=== PATIENT | male | born 1980 | race Caucasian/White ===

== ENCOUNTER 2018-04-19 08:43 | Inpatient (IN) | payer OTHER ==
[2018-04-19 09:08] VITALS: BMI 27.3
--- NOTE | 2018-04-19 10:11 | HP ---
CIWA Score - Admission Criteria [facility] Guidelines: Admission for Medically Managed Detox: Requires at least one of the followin. CIWA greater than 12 2. Seizures within the past 24 hours 3. Delirium tremens within the past 24 hours 4. Hallucinations within the past 24 hours 5. Acute intervention needed for co occurring medical disorder 6. Acute intervention needed for co occurring psychiatric disorder 7. Severe withdrawal that cannot be handled at a lower level of care (continued vomiting, continued diarrhea, abnormal vital signs) requiring intravenous medication and/or fluids 8. Admission ROS [facility] - HPI Chief Complaint: i need help to go to rehab for heroin abused,mandate by parole,also alcohol abused Allergies/Adverse Reactions: Allergies Allergy/AdvReac Type Severity Reaction Status Date / Time Penicillins Allergy Severe Hives Verified 04/19/18 09:48 History of Present Illness: this 37 years old male with heroin abused,mandated by parole,also alcohol abused anxiety,depression,adhd no medication nicotine dependence last treatment [facility] 09[facility]04 not completed Exam Limitations: No Limitations - Ebola screening Have you traveled outside of the country in the last 21 days: No Have you had contact with anyone from an Ebola affected area: No Have you been sick,other than usual withdrawal symptoms: No Do you have a fever: No - Review of Systems Constitutional: No Symptoms Reported EENT: reports: No Symptoms Reported Respiratory: reports: No Symptoms reported Cardiac: reports: No Symptoms Reported GI: reports: No Symptoms Reported : reports: No Symptoms Reported Musculoskeletal: reports: No Symptoms Reported Integumentary: reports: Dryness Neuro: reports: No Symptoms reported Endocrine: reports: No Symptoms Reported Hematology: reports: No Symptoms Reported Psychiatric: reports: No Sypmtoms Reported, Judgement Intact, Mood/Affect Appropiate, Orientated x3, Anxious, Depressed, other (adhd) Patient History - Patient Medical History Hx Anemia: No Hx Asthma: No Hx Chronic Obstructive Pulmonary Disease (COPD): No Hx Cancer: No Hx Cardiac Disorders: No Hx Congestive Heart Failure: No Hx Hypertension: No Hx Hypercholesterolemia: No Hx Pacemaker: No HX Cerebrovascular Accident: No Hx Seizures: Yes (r/t head trauma-last episode was in 08/2017) Hx Dementia: No Hx Diabetes: No Hx Gastrointestinal Disorders: No Hx Liver Disease: No Hx Genitourinary Disorders: No Hx Sexually Transmitted Disorders: No Hx Renal Disease (ESRD): No Hx Thyroid Disease: No Hx Human Immunodeficiency Virus (HIV): No (last 02/04 negative) Hx Hepatitis C: No Hx Depression: Yes (anxiety,adhd) Hx Suicide Attempt: No Hx Bipolar Disorder: No Hx Schizophrenia: No Other Medical History: no suicidal,no homicidal - Patient Surgical History Past Surgical History: Yes Hx Neurologic Surgery: No Hx Cataract Extraction: No Hx Cardiac Surgery: No Hx Lung Surgery: No Hx Breast Surgery: No Hx Breast Biopsy: No Hx Abdominal Surgery: No Hx Appendectomy: No Hx Cholecystectomy: No Hx Genitourinary Surgery: No Hx Section: No Hx Orthopedic Surgery: Yes (fx, left arm (fall)) Other Surgical History: right shoulder, left ear - PPD History Previous Implant?: Yes Documented Results: Negative w/o proof Implanted On Prior [facility] Admission?: No PPD to be Administered?: Yes - Smoking Cessation Smoking history: Current every day smoker Have you smoked in the past 12 months: Yes Aproximately how many cigarettes per day: 10 Cigars Per Day: 0 Hx Chewing Tobacco Use: No Initiated information on smoking cessation: Yes 'Breaking Loose' booklet given: 04/19/18 - Substance & Tx. History Hx Alcohol Use: Yes Hx Substance Use: Yes Substance Use Type: Heroin Hx Substance Use Treatment: Yes (rehab [facility] 09[facility]04 not completed) - Substances Abused Heroin Route: Inhalation Frequency: 1-2 times per week Amount used: 2-3 bags Age of first use: 18 Date of Last Use: 04/12/18 Alcohol Route: Oral Frequency: 3-6 times per week Amount used: 1pint of vodka/2 of 24 ozs of beer Age of first use: 14 Date of Last Use: 04/16/18 Family Disease History - Family Disease History Family Disease History: CA: Mother (), Other: Father (alcohol) Admission Physical Exam [facility] - Vital Signs Vital Signs: Vital Signs - 24 hr 04/19/18 09:05 Temperature 98.8 F Pulse Rate 60 Respiratory 18 Rate Blood Pressure 105/60 - Physical General Appearance: Yes: Within Normal Limits HEENTM: Yes: Normal ENT Inspection, BEA, Pharynx Normal, Tm's normal Respiratory: Yes: Lungs Clear, Normal Breath Sounds, No Respiratory Distress Neck: Yes: Within Normal Limits, Supple, Trachea in good position Breast: Yes: Within Normal Limits Cardiology: Yes: Within Normal Limits, Regular Rhythm, Regular Rate, S1, S2 Abdominal: Yes: Within Normal Limits, Normal Bowel Sounds, Non Tender, Flat, Soft Genitourinary: Yes: Within Normal Limits Back: Yes: Within Normal Limits (history of low back pain) Musculoskeletal: Yes: Within Normal Limits Extremities: Yes: Within Normal Limits 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: 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 NML intact, Fully Oriented, Alert, Motor Strength 5/5 Integumentary: Yes: Within Normal Limits Lymphatic: Yes: Within Normal Limits - Diagnostic (1) Opioid dependence Current Visit: No Status: Acute (2) ADHD Current Visit: No Status: Acute (3) Alcohol dependence Current Visit: No Status: Acute (4) History of head injury Current Visit: No Status: Acute (5) Insomnia secondary to depression with anxiety Current Visit: No Status: Acute (6) Nicotine dependence Current Visit: No Status: Acute (7) Seizure Current Visit: No Status: Acute Cleared for Admission [facility] - Detox or Rehab Claeared for Rehab Admission: Yes [facility] Breath Alcohol Content Breath Alcohol Content: 0 Urine Drug Screen - Results Drug Screen Negative: Yes Inpatient Rehab Admission - Initial Determination Are CD services needed?: Yes Free of communicable disease: Yes Not in need of hospitalization: Yes - Rehab Admission Criteria Previous failed treatment: Yes Poor recovery environment: Yes Comorbidities: Yes Lacks judgement: No Patient is meeting Inpatient Rehab admission criteria:: Yes
[2018-04-19] MEDS ORDERED: MAGNESIUM HYDROX 2400MG/30ML ORAL SUSPENSION 30 ML CUP PO PRN (10:23)
[2018-04-19] MEDS ORDERED: MAG HYDROX/AL HYDROX/SIMETH 30 ML UNIT-DOSE CUP PO PRN (10:23)
[2018-04-19] MEDS ORDERED: NICOTINE POLACRILEX 2 MG GUM BUC PRN (10:23)
[2018-04-19] MEDS ORDERED: LOPERAMIDE HCL 2 MG CAPSULE PO PRN (10:23)
[2018-04-19] MEDS ORDERED: IBUPROFEN 400 MG TABLET (FP) PO PRN (10:23)
[2018-04-19] MEDS: NICOTINE 21 MG/24 HOURS TOPICAL PATCH TD SCH (12:42)
[2018-04-19] MEDS ORDERED: TUBERCULIN PPD 5 TU/0.1ML VIAL ID ONE (12:42)
[2018-04-19] MEDS: P-EPHED 60MG/TRIPROLIDI 2.5MG TABLET PO PRN (17:24)
[2018-04-19] MEDS: THIAMINE HCL 100 MG TABLET (FP) PO SCH (21:04)
[2018-04-19] MEDS: MELATONIN 5 MG TABLETS PO PRN (21:04)
[2018-04-20] MEDS: NICOTINE 21 MG/24 HOURS TOPICAL PATCH TD SCH (09:49)
[2018-04-20] MEDS: PRENATAL VITAMINS W/ FOLIC ACID TABLET (FP) PO SCH (09:50)
[2018-04-20] MEDS: P-EPHED 60MG/TRIPROLIDI 2.5MG TABLET PO PRN ×2 (09:50→16:52)
--- NOTE | 2018-04-20 10:12 | PN ---
[facility] Progress Note Note: NEW PT ADMITTED 04/19/18. HX ANXIETY,DEPRESSION AND ADHD. REPORTS HE IS NOT ON MEDS AND NO PSYCH MD EXCEPT SAW NE IN TREATMENT WHILE AT [facility] IN THE PAST. DENIES ANY [facility] SX AND DECLINES PSYCH CONSULT STATING HE DOES NOT NEED IT AT THIS TIME. ALERT O X 3. OOB AND PARTICIPATING WITH PEERS. Vital Signs - 24 hr 04/19/18 04/20/18 04/20/18 12:53 00:30 03:30 Temperature 97.9 F Pulse Rate 70 Respiratory 18 16 17 Rate Blood Pressure 110/60 04/20/18 06:45 Temperature 98.0 F Pulse Rate 74 Respiratory 16 Rate Blood Pressure 126/67 CONTINUE REHAB TX
--- NOTE | 2018-04-20 15:13 | PN ---
S Progress Note Note: PT REQUESTING HE NEEDS TO TAKE OUT THE STITCHES ON RIGHT SMALL FINGER DUE TO LACERATION TRUAMA. PT REPORTS STITCHES PUT AT [facility] ABOUT ONE WEEK AGO AND WAS INSTRUCTED TO RETURN TO TAKE IT OUT ON 04/18/18 BUT UNABLE TO DO SO DUE TO UNCERTAINTY OF WHERE HE WILL BE AND ARRANGEMENT TO SECURE CD TREATMENT FOR PAST TWO DAYS. Vital Signs - 24 hr 04/20/18 04/20/18 04/20/18 00:30 03:30 06:45 Temperature 98.0 F Pulse Rate 74 Respiratory 16 17 16 Rate Blood Pressure 126/67 RIGHT HAND: 4 STITCHES REMOVED FROM VENTRAL ASPECT RIGHT SMALL FINGER(FIFTH DIGIT). AREA IS HEALED WITH NO DRAINAGE,PAIN, REDNESS OR SWELLING. AREA CLEANED WITH BETADINE SOLUTION.
[2018-04-20] MEDS: THIAMINE HCL 100 MG TABLET (FP) PO SCH (21:06)
[2018-04-20] MEDS: MELATONIN 5 MG TABLETS PO PRN (21:07)
[2018-04-20] MEDS: BACITRACIN 0.9 GM PACKET TP SCH (22:01)
[2018-04-21] MEDS: NICOTINE 21 MG/24 HOURS TOPICAL PATCH TD SCH (09:51)
[2018-04-21] MEDS: PRENATAL VITAMINS W/ FOLIC ACID TABLET (FP) PO SCH (09:51)
[2018-04-21] MEDS: BACITRACIN 0.9 GM PACKET TP SCH ×2 (09:51→21:02)
[2018-04-21] MEDS: guaiFENesin/D-METHORPHAN HB 10 ML UNIT-DOSE CUPS PO PRN ×2 (09:52→21:02)
[2018-04-21] MEDS: MELATONIN 5 MG TABLETS PO PRN (21:02)
[2018-04-21] MEDS: THIAMINE HCL 100 MG TABLET (FP) PO SCH (21:02)
[2018-04-22] MEDS: PRENATAL VITAMINS W/ FOLIC ACID TABLET (FP) PO SCH (09:27)
[2018-04-22] MEDS: NICOTINE 21 MG/24 HOURS TOPICAL PATCH TD SCH (09:27)
[2018-04-22] MEDS: BACITRACIN 0.9 GM PACKET TP SCH ×2 (09:27→21:04)
[2018-04-22] MEDS: P-EPHED 60MG/TRIPROLIDI 2.5MG TABLET PO PRN ×2 (09:29→21:02)
[2018-04-22] MEDS: guaiFENesin/D-METHORPHAN HB 10 ML UNIT-DOSE CUPS PO PRN ×2 (09:29→21:43)
[2018-04-22] MEDS: hydrOXYzine PAMOATE 50 MG CAPSULE (FP) PO PRN (21:01)
[2018-04-22] MEDS: ACETAMINOPHEN 325 MG TABLET (FP) PO PRN (21:01)
[2018-04-22] MEDS: THIAMINE HCL 100 MG TABLET (FP) PO SCH (21:03)
[2018-04-23] MEDS: ACETAMINOPHEN 325 MG TABLET (FP) PO PRN ×2 (06:13→14:25)
[2018-04-23] MEDS: guaiFENesin/D-METHORPHAN HB 10 ML UNIT-DOSE CUPS PO PRN ×3 (06:13→21:10)
[2018-04-23] MEDS: PRENATAL VITAMINS W/ FOLIC ACID TABLET (FP) PO SCH (09:49)
[2018-04-23] MEDS: NICOTINE 21 MG/24 HOURS TOPICAL PATCH TD SCH (09:49)
[2018-04-23] MEDS: BACITRACIN 0.9 GM PACKET TP SCH ×2 (09:49→21:11)
[2018-04-23] MEDS: THIAMINE HCL 100 MG TABLET (FP) PO SCH (21:11)
[2018-04-23] MEDS: MELATONIN 5 MG TABLETS PO PRN (21:11)
[2018-04-23] MEDS: hydrOXYzine PAMOATE 50 MG CAPSULE (FP) PO PRN (21:11)
[2018-04-23] MEDS: P-EPHED 60MG/TRIPROLIDI 2.5MG TABLET PO PRN (21:11)
[2018-04-24] MEDS: PRENATAL VITAMINS W/ FOLIC ACID TABLET (FP) PO SCH (09:54)
[2018-04-24] MEDS: guaiFENesin/D-METHORPHAN HB 10 ML UNIT-DOSE CUPS PO PRN ×2 (09:55→21:07)
[2018-04-24] MEDS: ACETAMINOPHEN 325 MG TABLET (FP) PO PRN (09:55)
[2018-04-24] MEDS: BACITRACIN 0.9 GM PACKET TP SCH ×2 (09:56→21:06)
[2018-04-24] MEDS: NICOTINE 21 MG/24 HOURS TOPICAL PATCH TD SCH (09:56)
[2018-04-24] MEDS: MENTHOL/PHENOL 1 EACH UD MM PRN (09:56)
--- NOTE | 2018-04-24 12:39 | PN ---
[facility] Progress Note Note: PT C/O COUGHING UP SPUTUM WITH BLOOD TING ONCE EARLIER THIS MORNING. DENIES FURTHER OCCURRENCE AFTER THAT THIS MORNING. C/O SLIGHT SORE THROAT ESPECIALLY WHEN HE COUGHS. REPORTS SOME NASAL CONGESTION. Vital Signs - 24 hr 04/23/18 04/24/18 04/24/18 23:20 00:30 03:30 Temperature 99 F Pulse Rate 94 H Respiratory 18 18 Rate Blood Pressure 04/24/18 06:44 Temperature 97.1 F L Pulse Rate 85 Respiratory 17 Rate Blood Pressure 131/61 LUNGS:CTA CXR NO PATHOLOGY THROAT:NO REDNESS OR SWELLING PLAN:CXR ORDERED AND RESULT INCREASE PO FLUIDS ACTIFED PRN CEPASTATE LOZENGES PRN ROBITUSSIN DM PRN PT INSTRUCTED TO INFORM STAFF FOR FUTURE EPISODE.
[2018-04-24 16:53] LABS: URINE APPEARANCE CLEAR; URINE BILIRUBIN NEGATIVE (<2.0 mg/dL); URINE COLOR YELLOW; URINE GLUCOSE (UA) NEGATIVE (NEGATIVE); URINE KETONE NEGATIVE (NEGATIVE); URINE LEUK ESTERASE NEGATIVE (NEGATIVE); URINE NITRITE NEGATIVE (NEGATIVE); URINE PROTEIN 1+ (NEGATIVE); URINE UROBILINOGEN 4.0 E.U/dl mg/dL (0.2-1.0)
[2018-04-24 17:04] LABS: URINE MUCUS RARE
[2018-04-24] MEDS: THIAMINE HCL 100 MG TABLET (FP) PO SCH (21:06)
[2018-04-24] MEDS: P-EPHED 60MG/TRIPROLIDI 2.5MG TABLET PO PRN (21:07)
[2018-04-25] MEDS: BACITRACIN 0.9 GM PACKET TP SCH (09:43)
[2018-04-25] MEDS: PRENATAL VITAMINS W/ FOLIC ACID TABLET (FP) PO SCH (09:43)
[2018-04-25] MEDS: ACETAMINOPHEN 325 MG TABLET (FP) PO PRN (09:44)
[2018-04-25] MEDS: guaiFENesin/D-METHORPHAN HB 10 ML UNIT-DOSE CUPS PO PRN ×2 (09:45→21:04)
[2018-04-25] MEDS: MENTHOL/PHENOL 1 EACH UD MM PRN (09:46)
[2018-04-25] MEDS: NICOTINE 21 MG/24 HOURS TOPICAL PATCH TD SCH (09:52)
[2018-04-25] MEDS: MELATONIN 5 MG TABLETS PO PRN (21:04)
[2018-04-25] MEDS: P-EPHED 60MG/TRIPROLIDI 2.5MG TABLET PO PRN (21:04)
[2018-04-25] MEDS: THIAMINE HCL 100 MG TABLET (FP) PO SCH (21:04)
[2018-04-26] MEDS: NICOTINE 21 MG/24 HOURS TOPICAL PATCH TD SCH (10:08)
[2018-04-26] MEDS: PRENATAL VITAMINS W/ FOLIC ACID TABLET (FP) PO SCH (10:08)
[2018-04-26] MEDS: guaiFENesin/D-METHORPHAN HB 10 ML UNIT-DOSE CUPS PO PRN ×2 (10:08→21:05)
[2018-04-26] MEDS: THIAMINE HCL 100 MG TABLET (FP) PO SCH (21:05)
[2018-04-26] MEDS: P-EPHED 60MG/TRIPROLIDI 2.5MG TABLET PO PRN (21:07)
[2018-04-26] MEDS: MENTHOL/PHENOL 1 EACH UD MM PRN (21:07)
[2018-04-27] MEDS: PRENATAL VITAMINS W/ FOLIC ACID TABLET (FP) PO SCH (09:53)
[2018-04-27] MEDS: guaiFENesin/D-METHORPHAN HB 10 ML UNIT-DOSE CUPS PO PRN ×2 (09:53→21:02)
[2018-04-27] MEDS: NICOTINE 21 MG/24 HOURS TOPICAL PATCH TD SCH (09:54)
[2018-04-27] MEDS: MENTHOL/PHENOL 1 EACH UD MM PRN ×2 (09:54→21:03)
--- NOTE | 2018-04-27 10:47 | PN ---
[facility] Progress Note Note: PT IS A 39 Y/O MALE ADMITTED TO REHAB ON 04/18/18 FOR HEROIN DEPENDENCE. PT HAS AH HX SEIZURE R/T HEAD TRUAMA WITH REPORTED LAST EPISODE IN 08/2017. PT IS A [place] MANDATE TO TREATMENT. PT C/O LEFT TESTICULAR/LOWER ABDOMINAL PAIN WITH SLIGHT SWELLING, REPORTING OCCURING INTERMITTENTLY FOR PAST 3- 4 DAYS. REPORTS EXPERIENCED PAIN LAST NIGHT THAT LASTED FOR AN HOUR. PT AGREES TO BE CHECKED OUT AT [facility] ED TODAY. PT STATES PAIN IS 7/10. DENIES NAUSEA, VOMITING OR DIARRHEA. REPORTS DISCOMFORT WHEN LAYING DOWN AND CONTACT WITH THIGH. ALERT O X 3. Vital Signs (72 hours) 04/25/18 04/25/18 04/25/18 00:30 03:30 06:46 Temperature 97.8 F Pulse Rate 80 Respiratory 18 18 16 Rate Blood Pressure 134/62 04/26/18 04/26/18 04/26/18 00:30 03:30 06:30 Temperature 98.1 F Pulse Rate 68 Respiratory 18 18 16 Rate Blood Pressure 112/69 04/27/18 04/27/18 04/27/18 00:30 03:30 06:31 Temperature 97.8 F Pulse Rate 75 Respiratory 18 18 18 Rate Blood Pressure 121/69 Active Medications Generic Name Dose Route Start Last Admin Trade Name Freq PRN Reason Stop Dose Admin Acetaminophen 650 mg 04/19/18 10:04/25/18 09:44 Tylenol - PO 650 mg Q4H PRN Administration FEVER Al Hydroxide/Mg Hydroxide 30 ml 04/19/18 10:23 Mylanta Oral Suspension - PO Q6H PRN DYSPEPSIA Eucalyptus/Menthol/Phenol/Sorbitol 1 each 04/19/18 10:04/27/18 09:54 Cepastat Lozenge - MM 1 each Q4H PRN Administration SORE THROAT Guaifenesin 10 ml 04/19/18 10:04/27/18 09:53 Robitussin Dm - PO 10 ml Q6H PRN Administration COUGH Hydroxyzine Pamoate 50 mg 04/19/18 10:04/23/18 21:11 Vistaril - PO 50 mg Q4H PRN Administration AGITATION Ibuprofen 400 mg 04/19/18 10:04/23/18 21:12 Motrin - PO 400 mg Q6H PRN Administration Pain level 4-6 Loperamide HCl 4 mg 04/19/18 10:23 Imodium - PO Q6H PRN DIARRHEA Magnesium Citrate 300 ml 04/19/18 10:23 Citroma - PO Q48H PRN CONSTIPATION Magnesium Hydroxide 30 ml 04/19/18 10:23 Milk Of Magnesia - PO DAILY PRN CONSTIPATION Melatonin 5 mg 04/19/18 22:00 04/25/18 21:04 Melatonin PO 5 mg HS PRN Administration INSOMNIA Nicotine 21 mg 04/19/18 10:30 04/27/18 09:54 Nicoderm Patch - TD Not Given DAILY BE Nicotine Polacrilex 2 mg 04/19/18 10:23 Nicorette Gum - BUC Q2H PRN NICOTINE REPLACEMENT RX Multivit/Folic Acid/Iron 1 tab 04/20/18 10:00 04/27/18 09:53 Vitamins (Sjr) - PO 1 tab DAILY BE Administration Pseudoephedrine/Triprolidine 1 combo 04/19/18 10:23 04/26/18 21:07 Actifed - PO 1 combo TID PRN Administration NASAL CONGESTION Thiamine HCl 100 mg 04/19/18 22:00 04/26/18 21:05 Vitamin B1 - PO 100 mg HS BE Administration Home Medications Medication Instructions Recorded NK [No Known Home Medication] 04/18/18 R/O PATHOLOGY PLAN;[facility] FOR [facility]AL[facility]ATION AND POSSIBLE TREATMENT. SPOKE TO DR PENA AT THE ED WHO AGREES TO ACCEPT THE PATIENT. PT MAY RETURN TO [facility] AFTER EVALUATION AND CLEARANCE TO CONTINUE REHAB TREATMENT.
--- NOTE | 2018-04-27 18:50 | PN ---
[facility] Progress Note Note: [facility]. Partial ED report, as follows: "04/27/18 13:44 Chief complaint: Left testicular pain intimately for the past few months. Patient currently asymptomatic. Exam. No acute findings on exam. Patient ordered for ultrasound of the scrotum and contents 04/27/18 14:07 Both testicles appear unremarkable without evidence of torsion. Slightly prominent color Doppler flow in the left testicle relative to the right. Cannot rule out mild left epididymal orchitis. There is no evidence of hydrocele or varicocele bilaterally. Patient states no fever and had full STD workup. UA reviewed from the 6th collected at [facility] which was negative for acute findings. Urine culture was sent. Plan: "......the urine culture will be followed up. If symptoms worsen please return to the nearest ED for further evaluation." Patient is alert and oriented. Denies pain. B/P: 113/60; HR: 61; R: 18; T: 98.6 Plan: F/u results of urine culture. Patient to notify provider if symptoms worsen.
[2018-04-27] MEDS: THIAMINE HCL 100 MG TABLET (FP) PO SCH (21:02)
[2018-04-27] MEDS: MELATONIN 5 MG TABLETS PO PRN (21:02)
[2018-04-27] MEDS: P-EPHED 60MG/TRIPROLIDI 2.5MG TABLET PO PRN (21:03)
[2018-04-28] MEDS: NICOTINE 21 MG/24 HOURS TOPICAL PATCH TD SCH (09:48)
[2018-04-28] MEDS: PRENATAL VITAMINS W/ FOLIC ACID TABLET (FP) PO SCH (09:48)
[2018-04-28] MEDS: guaiFENesin/D-METHORPHAN HB 10 ML UNIT-DOSE CUPS PO PRN ×2 (09:49→21:04)
[2018-04-28] MEDS: MENTHOL/PHENOL 1 EACH UD MM PRN ×2 (09:50→21:04)
[2018-04-28] MEDS: THIAMINE HCL 100 MG TABLET (FP) PO SCH (21:03)
[2018-04-29] MEDS: PRENATAL VITAMINS W/ FOLIC ACID TABLET (FP) PO SCH (09:52)
[2018-04-29] MEDS: NICOTINE 21 MG/24 HOURS TOPICAL PATCH TD SCH (09:53)
[2018-04-29] MEDS: THIAMINE HCL 100 MG TABLET (FP) PO SCH (21:02)
[2018-04-30] MEDS: PRENATAL VITAMINS W/ FOLIC ACID TABLET (FP) PO SCH (10:00)
[2018-04-30] MEDS: NICOTINE 21 MG/24 HOURS TOPICAL PATCH TD SCH (10:00)
[2018-04-30] MEDS: THIAMINE HCL 100 MG TABLET (FP) PO SCH (21:01)
[2018-04-30] MEDS: MELATONIN 5 MG TABLETS PO PRN (21:01)
[2018-05-01] MEDS: NICOTINE 21 MG/24 HOURS TOPICAL PATCH TD SCH (11:07)
[2018-05-01] MEDS: PRENATAL VITAMINS W/ FOLIC ACID TABLET (FP) PO SCH (11:07)
[2018-05-01] MEDS: THIAMINE HCL 100 MG TABLET (FP) PO SCH (21:05)
[2018-05-01] MEDS: MELATONIN 5 MG TABLETS PO PRN (21:05)
[2018-05-02] MEDS: PRENATAL VITAMINS W/ FOLIC ACID TABLET (FP) PO SCH (09:33)
[2018-05-02] MEDS: NICOTINE 21 MG/24 HOURS TOPICAL PATCH TD SCH (09:34)
--- NOTE | 2018-05-02 09:52 | PN ---
[facility] Progress Note Note: PT IS A 37 Y/O MALE HERE SINCE 04/19/18 FOR REHAB AND MANDATED TO TREATMENT BY [facility]. PT IS REQUESTING TO BE ON MAT WITH SUBOXONE. PT HAS A HX OF HERION, COCAINE AND ALCOHOL USE(SEE H/P). PT REPORTS HE HAS BEEN ON METHADONE 60 MG MAINTENANCE X 3 MONTHS IN 2018 BUT WAS LOCKED UP AND DID NOT CONTINUE WITH METHADONE DUE TO INCARCERATION. PT REPORTS HE HAS ALSO BEEN USING NON RX SUBOXONE WHICH HELPED HIM STOP HIS DRUG CRAVINGS AND WANTS TO GET ON RX SUBOXONE. PT HAS SPOKEN TO HIS COUNSELOR, NICHOLAS PERALTA WHO STATES PT PLANS TO FOLLOW UP WITH CD AFTERCARE AT [facility]. Home Medications Medication Instructions Recorded NK [No Known Home Medication] 04/18/18 Active Medications Generic Name Dose Route Start Last Admin Trade Name Freq PRN Reason Stop Dose Admin Acetaminophen 650 mg 04/19/18 10:23 04/25/18 09:44 Tylenol - PO 650 mg Q4H PRN Administration FEVER Al Hydroxide/Mg Hydroxide 30 ml 04/19/18 10:23 Mylanta Oral Suspension - PO Q6H PRN DYSPEPSIA Eucalyptus/Menthol/Phenol/Sorbitol 1 each 04/19/18 10:23 04/28/18 21:04 Cepastat Lozenge - MM 1 each Q4H PRN Administration SORE THROAT Guaifenesin 10 ml 04/19/18 10:23 04/28/18 21:04 Robitussin Dm - PO 10 ml Q6H PRN Administration COUGH Hydroxyzine Pamoate 50 mg 04/19/18 10:23 04/23/18 21:11 Vistaril - PO 50 mg Q4H PRN Administration AGITATION Ibuprofen 400 mg 04/19/18 10:23 04/23/18 21:12 Motrin - PO 400 mg Q6H PRN Administration Pain level 4-6 Loperamide HCl 4 mg 04/19/18 10:23 Imodium - PO Q6H PRN DIARRHEA Magnesium Citrate 300 ml 04/19/18 10:23 Citroma - PO Q48H PRN CONSTIPATION Magnesium Hydroxide 30 ml 04/19/18 10:23 Milk Of Magnesia - PO DAILY PRN CONSTIPATION Melatonin 5 mg 04/19/18 22:00 05/01/18 21:05 Melatonin PO 5 mg HS PRN Administration INSOMNIA Nicotine 21 mg 04/19/18 10:30 05/02/18 09:34 Nicoderm Patch - TD Not Given DAILY BE Nicotine Polacrilex 2 mg 04/19/18 10:23 Nicorette Gum - BUC Q2H PRN NICOTINE REPLACEMENT RX Multivit/Folic Acid/Iron 1 tab 04/20/18 10:00 05/02/18 09:33 Vitamins (Sjr) - PO 1 tab DAILY BE Administration Pseudoephedrine/Triprolidine 1 combo 04/19/18 10:23 04/27/18 21:03 Actifed - PO 1 combo TID PRN Administration NASAL CONGESTION Thiamine HCl 100 mg 04/19/18 22:00 05/01/18 21:05 Vitamin B1 - PO 100 mg HS BE Administration Vital Signs 05/02/18 05/02/18 03:30 06:46 Temperature 97.9 F Pulse Rate 66 Respiratory 18 18 Rate Blood Pressure 97/58 L Laboratory Tests 04/24/18 15:40 Urine Color Yellow Urine Appearance Clear Urine pH 6.0 Ur Specific [place] 1.031 Urine Protein 1+ H Urine Glucose (UA) Negative Urine Ketones Negative Urine Blood Negative Urine Nitrite Negative Urine Bilirubin Negative Urine Urobilinogen 4.0 e.u/dl Ur Leukocyte Esterase Negative Urine WBC (Auto) 2 Urine RBC (Auto) 7 Urine Mucus Rare A:HX OPIOID DEPENDENCE PLAN:DISCUSSED TREATMENT MODALITY WITH PATIENT WHO HAS AGREED TO THE PLAN OF CARE. WILL START SUBOXONE 2MG /0.5 MG SL DAILY FIRST DOSE TODAY. PER PT REQUEST, WILL RE:EVALUATE AND INCREASE DOSE NECESSARY.
[2018-05-02] MEDS ORDERED: BUPRENORPHINE/NALOXONE 2 MG/0.5 MG FILM PACKET SL ONE (10:58)
[2018-05-02] MEDS: THIAMINE HCL 100 MG TABLET (FP) PO SCH (21:01)
[2018-05-03] MEDS: PRENATAL VITAMINS W/ FOLIC ACID TABLET (FP) PO SCH (09:51)
[2018-05-03] MEDS: BUPRENORPHINE/NALOXONE 2 MG/0.5 MG FILM PACKET SL SCH (09:51)
[2018-05-03] MEDS: NICOTINE 21 MG/24 HOURS TOPICAL PATCH TD SCH (09:51)
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
--- NOTE | 2018-05-03 15:50 | PN ---
[facility] COWS - Scale Resting Pulse: 0= NV 80 or Below Sweatin= No chills or Flushing Restless Observation: 0= Sits Still Pupil Size: 0= Normal to Room Light Bone or Joint Aches: 4=Acute Joint/Muscle Pain Runny Nose/ Eye Tearin= Nasal Congestion GI Upset > 30mins: 0= None Tremor Observation of Outstretched Hands: 0= None Yawning Observation: 0= None Anxiety or Irritability: 2=Irritable/Anxious Goose Flesh Skin: 0=Smooth Skin COWS Score: 7
[2018-05-03] MEDS: MELATONIN 5 MG TABLETS PO PRN (21:57)
[2018-05-03] MEDS: THIAMINE HCL 100 MG TABLET (FP) PO SCH (21:57)
[2018-05-04] MEDS: PRENATAL VITAMINS W/ FOLIC ACID TABLET (FP) PO SCH (09:57)
[2018-05-04] MEDS: NICOTINE 21 MG/24 HOURS TOPICAL PATCH TD SCH (09:58)
[2018-05-04] MEDS: SERTRALINE HCL 50 MG TABLET (FP) PO SCH (09:58)
[2018-05-04] MEDS: BUPRENORPHINE/NALOXONE 2 MG/0.5 MG FILM PACKET SL SCH (09:58)
[2018-05-04] MEDS: guaiFENesin/D-METHORPHAN HB 10 ML UNIT-DOSE CUPS PO PRN (09:59)
[2018-05-04] MEDS ORDERED: MINERAL OIL/PETROLAT/WATER TOPICAL CREAM 113 GM JAR TP SCH (12:15)
[2018-05-04] MEDS: THIAMINE HCL 100 MG TABLET (FP) PO SCH (21:03)
[2018-05-05] MEDS: SERTRALINE HCL 50 MG TABLET (FP) PO SCH (09:49)
[2018-05-05] MEDS: BUPRENORPHINE/NALOXONE 2 MG/0.5 MG FILM PACKET SL SCH (09:49)
[2018-05-05] MEDS: PRENATAL VITAMINS W/ FOLIC ACID TABLET (FP) PO SCH (09:49)
[2018-05-05] MEDS: NICOTINE 21 MG/24 HOURS TOPICAL PATCH TD SCH (09:50)
[2018-05-05] MEDS: hydrOXYzine PAMOATE 50 MG CAPSULE (FP) PO PRN (21:02)
[2018-05-05] MEDS: THIAMINE HCL 100 MG TABLET (FP) PO SCH (21:02)
[2018-05-06] MEDS: SERTRALINE HCL 50 MG TABLET (FP) PO SCH (09:36)
[2018-05-06] MEDS: BUPRENORPHINE/NALOXONE 2 MG/0.5 MG FILM PACKET SL SCH (09:36)
[2018-05-06] MEDS: NICOTINE 21 MG/24 HOURS TOPICAL PATCH TD SCH (09:36)
[2018-05-06] MEDS: PRENATAL VITAMINS W/ FOLIC ACID TABLET (FP) PO SCH (09:36)
[2018-05-06] MEDS: THIAMINE HCL 100 MG TABLET (FP) PO SCH (21:00)
[2018-05-07] MEDS: NICOTINE 21 MG/24 HOURS TOPICAL PATCH TD SCH (09:22)
[2018-05-07] MEDS: BUPRENORPHINE/NALOXONE 2 MG/0.5 MG FILM PACKET SL SCH (09:22)
[2018-05-07] MEDS: SERTRALINE HCL 50 MG TABLET (FP) PO SCH (09:22)
[2018-05-07] MEDS: PRENATAL VITAMINS W/ FOLIC ACID TABLET (FP) PO SCH (09:22)
[2018-05-07] MEDS: THIAMINE HCL 100 MG TABLET (FP) PO SCH (21:01)
[2018-05-07] MEDS: MELATONIN 5 MG TABLETS PO PRN (21:01)
[2018-05-08] MEDS: SERTRALINE HCL 50 MG TABLET (FP) PO SCH (09:41)
[2018-05-08] MEDS: BUPRENORPHINE/NALOXONE 2 MG/0.5 MG FILM PACKET SL SCH (09:41)
[2018-05-08] MEDS: PRENATAL VITAMINS W/ FOLIC ACID TABLET (FP) PO SCH (09:41)
[2018-05-08] MEDS: NICOTINE 21 MG/24 HOURS TOPICAL PATCH TD SCH (09:43)
[2018-05-08] MEDS: THIAMINE HCL 100 MG TABLET (FP) PO SCH (21:11)
[2018-05-08] MEDS: MELATONIN 5 MG TABLETS PO PRN (21:11)
[2018-05-09] MEDS: SERTRALINE HCL 50 MG TABLET (FP) PO SCH (09:49)
[2018-05-09] MEDS: BUPRENORPHINE/NALOXONE 2 MG/0.5 MG FILM PACKET SL SCH (09:50)
[2018-05-09] MEDS: PRENATAL VITAMINS W/ FOLIC ACID TABLET (FP) PO SCH (09:51)
[2018-05-09] MEDS: NICOTINE 21 MG/24 HOURS TOPICAL PATCH TD SCH (09:52)
[2018-05-09] MEDS: hydrOXYzine PAMOATE 50 MG CAPSULE (FP) PO PRN (21:02)
[2018-05-09] MEDS: MELATONIN 5 MG TABLETS PO PRN (21:02)
[2018-05-09] MEDS: THIAMINE HCL 100 MG TABLET (FP) PO SCH (21:02)
[2018-05-10] MEDS: SERTRALINE HCL 50 MG TABLET (FP) PO SCH (09:50)
[2018-05-10] MEDS: PRENATAL VITAMINS W/ FOLIC ACID TABLET (FP) PO SCH (09:51)
[2018-05-10] MEDS: NICOTINE 21 MG/24 HOURS TOPICAL PATCH TD SCH (09:51)
--- NOTE | 2018-05-10 10:11 | PN ---
[facility] COWS - Scale Resting Pulse: 0= NE 80 or Below Sweatin= No chills or Flushing Restless Observation: 0= Sits Still Pupil Size: 0= Normal to Room Light Bone or Joint Aches: 4=Acute Joint/Muscle Pain Runny Nose/ Eye Tearin= Nasal Congestion GI Upset > 30mins: 0= None Tremor Observation of Outstretched Hands: 1= Tremor [place], Not Seen Yawning Observation: 0= None Anxiety or Irritability: 1=Feels Anxious/Irritable Goose Flesh Skin: 0=Smooth Skin COWS Score: 7 [facility] Progress Note (SOAP) Subjective: PT REQUESTING TO INCREASE SUBOXONE BECAUSE "NOT HOLDING ME ANYMORE. I FEEL SOME CRAVINGS NOW, ACHES COMING BACK AND RESTLESS". PT IS ALERT O X 3. Objective: 05/10/18 10:10 Vital Signs - 24 hr 05/10/18 05/10/18 00:30 06:24 Temperature 98.4 F Pulse Rate 57 L Respiratory 18 18 Rate Blood Pressure 106/60 Assessment: 05/10/18 10:11 A:NEED FOR INCREASED DOSE DUE TO DISCOMFORT. Plan: SUBOXONE 4MG/ 1 MG SL BID RE-EVALUATE DOSE NEEDED. PT IS REFERRED TO [facility] FOR AFTERCARE AND WILL CONTINUE TREATMENT THERE.
[2018-05-10] MEDS ORDERED: MINERAL OIL/PETROLAT/WATER TOPICAL CREAM 113 GM JAR TP PRN (10:15)
[2018-05-10] MEDS ORDERED: BUPRENORPHINE/NALOXONE 2 MG/0.5 MG FILM PACKET SL ONE (10:30)
[2018-05-10] MEDS: THIAMINE HCL 100 MG TABLET (FP) PO SCH (21:00)
[2018-05-10] MEDS: BUPRENORPHINE/NALOXONE 2 MG/0.5 MG FILM PACKET SL SCH (21:01)
[2018-05-10] MEDS: MELATONIN 5 MG TABLETS PO PRN (21:01)
[2018-05-11] MEDS: MAGNESIUM CITRATE 300 ML BOTTLE PO PRN (01:11)
[2018-05-11] MEDS: BUPRENORPHINE/NALOXONE 2 MG/0.5 MG FILM PACKET SL SCH ×2 (09:38→21:02)
[2018-05-11] MEDS: SERTRALINE HCL 50 MG TABLET (FP) PO SCH (09:38)
[2018-05-11] MEDS: PRENATAL VITAMINS W/ FOLIC ACID TABLET (FP) PO SCH (09:38)
[2018-05-11] MEDS: NICOTINE 21 MG/24 HOURS TOPICAL PATCH TD SCH (09:40)
[2018-05-11] MEDS: hydrOXYzine PAMOATE 50 MG CAPSULE (FP) PO PRN (21:02)
[2018-05-11] MEDS: THIAMINE HCL 100 MG TABLET (FP) PO SCH (21:02)
[2018-05-12] MEDS: PRENATAL VITAMINS W/ FOLIC ACID TABLET (FP) PO SCH (09:22)
[2018-05-12] MEDS: BUPRENORPHINE/NALOXONE 2 MG/0.5 MG FILM PACKET SL SCH ×2 (09:22→21:02)
[2018-05-12] MEDS: NICOTINE 21 MG/24 HOURS TOPICAL PATCH TD SCH (09:22)
[2018-05-12] MEDS: SERTRALINE HCL 50 MG TABLET (FP) PO SCH (09:22)
[2018-05-12] MEDS ORDERED: ALBUTEROL SO4 2.5/IPRATROPIUM 0.5 INH SOL 3 ML VIAL.NEB. NEB ONE (14:54)
[2018-05-12] MEDS: THIAMINE HCL 100 MG TABLET (FP) PO SCH (21:02)
[2018-05-12] MEDS: MELATONIN 5 MG TABLETS PO PRN (21:03)
[2018-05-13] MEDS: PRENATAL VITAMINS W/ FOLIC ACID TABLET (FP) PO SCH (09:42)
[2018-05-13] MEDS: NICOTINE 21 MG/24 HOURS TOPICAL PATCH TD SCH (09:43)
[2018-05-13] MEDS: SERTRALINE HCL 50 MG TABLET (FP) PO SCH (09:43)
[2018-05-13] MEDS: BUPRENORPHINE/NALOXONE 2 MG/0.5 MG FILM PACKET SL SCH ×2 (09:43→21:01)
[2018-05-13] MEDS: THIAMINE HCL 100 MG TABLET (FP) PO SCH (21:01)
[2018-05-13] MEDS: MELATONIN 5 MG TABLETS PO PRN (21:02)
[2018-05-14] MEDS: BUPRENORPHINE/NALOXONE 2 MG/0.5 MG FILM PACKET SL SCH ×2 (09:44→21:11)
[2018-05-14] MEDS: PRENATAL VITAMINS W/ FOLIC ACID TABLET (FP) PO SCH (09:44)
[2018-05-14] MEDS: SERTRALINE HCL 50 MG TABLET (FP) PO SCH (09:44)
[2018-05-14] MEDS: NICOTINE 21 MG/24 HOURS TOPICAL PATCH TD SCH (09:46)
[2018-05-14] MEDS ORDERED: SODIUM PHOSPHATE/NA BIPHOS 133 ML ENEMA PR ONE (11:25)
--- NOTE | 2018-05-14 11:34 | PN ---
[facility] Progress Note Note: PT C/O NO BM DESPITE TAKING CITROMA. Vital Signs 05/14/18 05/14/18 03:30 06:35 Temperature 97.8 F Pulse Rate 57 L Respiratory 18 16 Rate Blood Pressure 113/67 PLAN:CITROMA X1 MORE FLEET ENEMA X 1 IF NO BM AFTER 24 HRS
[2018-05-14] MEDS: MELATONIN 5 MG TABLETS PO PRN (21:11)
[2018-05-14] MEDS: THIAMINE HCL 100 MG TABLET (FP) PO SCH (21:11)
[2018-05-14] MEDS: MAGNESIUM CITRATE 300 ML BOTTLE PO PRN (23:22)
[2018-05-15] MEDS: PRENATAL VITAMINS W/ FOLIC ACID TABLET (FP) PO SCH (09:45)
[2018-05-15] MEDS: BUPRENORPHINE/NALOXONE 2 MG/0.5 MG FILM PACKET SL SCH (09:45)
[2018-05-15] MEDS: NICOTINE 21 MG/24 HOURS TOPICAL PATCH TD SCH (09:45)
[2018-05-15] MEDS: SERTRALINE HCL 50 MG TABLET (FP) PO SCH (09:45)
--- NOTE | 2018-05-15 12:51 | PN ---
S Progress Note Note: PT REQUESTING FOR RE-EVALUATION OF SUBOXONE DOSE INCREASE. REPORTS SOME ANXIETY , AND NEED TO INCREASE DOSE. PT IS SCHEDULED FOR DISCHARGE ON 05/17/18 AND HAS BEEN REFERRED TO [facility] FOR CD AFTERCARE AFTER REHAB TREATMENT. PT IS ALERT O X 3. PARTICIPATING IN GROUPS DAILY AND NOT SPENDING TIME IN BED DURING THE DAY EARLIER PERIOD IN ADMISSION. Vital Signs 05/15/18 06:39 Temperature 98.1 F Pulse Rate 57 L Respiratory 18 Rate Blood Pressure 126/65 Laboratory Tests 04/24/18 15:40 Urine Color Yellow Urine Appearance Clear Urine pH 6.0 Ur Specific [place] 1.031 Urine Protein 1+ H Urine Glucose (UA) Negative Urine Ketones Negative Urine Blood Negative Urine Nitrite Negative Urine Bilirubin Negative Urine Urobilinogen 4.0 e.u/dl Ur Leukocyte Esterase Negative Urine WBC (Auto) 2 Urine RBC (Auto) 7 Urine Mucus Rare NAD PLAN:INCREASE AND MAINTAIN ON SUBOXONE 8 MG/2MG SL BID WILL ELECTRONICALLY SENT [facility] RX OF SUBOXONE 8MG/2/MG SL BID #14 TO [facility] FOR BINDING NICKER. INSTRUCTED TO TAKE RX TO CLINIC VISIT.
[2018-05-15] MEDS: THIAMINE HCL 100 MG TABLET (FP) PO SCH (21:02)
[2018-05-15] MEDS: BUPRENORPHINE/NALOXONE 8 MG/2 MG FILM PACKET SL SCH (21:02)
[2018-05-16] MEDS: SERTRALINE HCL 50 MG TABLET (FP) PO SCH (09:44)
[2018-05-16] MEDS: BUPRENORPHINE/NALOXONE 8 MG/2 MG FILM PACKET SL SCH ×2 (09:44→21:05)
[2018-05-16] MEDS: PRENATAL VITAMINS W/ FOLIC ACID TABLET (FP) PO SCH (09:44)
[2018-05-16] MEDS: NICOTINE 21 MG/24 HOURS TOPICAL PATCH TD SCH (09:45)
[2018-05-16] MEDS: THIAMINE HCL 100 MG TABLET (FP) PO SCH (21:05)
[2018-05-16] MEDS: MELATONIN 5 MG TABLETS PO PRN (21:06)
[2018-05-16] MEDS: MAGNESIUM CITRATE 300 ML BOTTLE PO PRN (21:06)
[2018-05-17 07:03] VITALS: BP 120/70; PULSE 51; TEMP 97.3
[2018-05-17] MEDS: BUPRENORPHINE/NALOXONE 8 MG/2 MG FILM PACKET SL SCH (09:26)
[2018-05-17] MEDS: NICOTINE 21 MG/24 HOURS TOPICAL PATCH TD SCH (09:26)
[2018-05-17] MEDS: SERTRALINE HCL 50 MG TABLET (FP) PO SCH (09:26)
[2018-05-17] MEDS: PRENATAL VITAMINS W/ FOLIC ACID TABLET (FP) PO SCH (09:26)
--- NOTE | 2018-05-17 09:45 | PN ---
S Progress Note Note: Psychiatric nurse practitioner note: Patient being discharged today after completing rehab. A 30 day prescription of Zoloft 75mg will be electronically sent to [facility] at [address] [place] [address].
--- NOTE | 2018-05-17 10:55 | PN ---
[facility] Progress Note Note: PT COMPLETED REHAB AND DISCHARGED TODAY. PT MET WITH COUNSELOR, NICHOLAS PERALTA AND HAS BEEN REFERRED TO [facility] FOR CD AFTERCARE. PT WILL CONTINUE SUBOXONE TREATMENT AT [facility] ON [address], [place]. PT REPORTS HE NEEDS PRIMARY CARE BECAUSE HAS NONE NOW AND HAS BEEN REFERRED TO [facility] ON [address], [place] FOR PRIMARY CARE MANAGEMENT. COURTESY RX BELOW ELECTRONICALLY SENT TO [facility] FOR SHANK FAKER. PT IS ALERT O X 3. DENIES S/H/I. Home Medications Medication Instructions Recorded Buprenorphine/Naloxone [Suboxone 1 each SL BID #14 packet MDD 2 05/15/18 8Mg/2Mg Sl Film -] Naloxone HCl [Narcan] 4 mg NS ONCE #1 spray 05/17/18 Sertraline HCl [Zoloft -] 75 mg PO DAILY #30 tablet 05/17/18 Sertraline HCl [Zoloft] 25 mg PO DAILY #30 tablet 05/17/18 Vital Signs - 24 hr 05/17/18 05/17/18 05/17/18 00:30 03:30 07:02 Temperature 97.3 F L Pulse Rate 51 L Respiratory 18 18 18 Rate Blood Pressure 120/70 Laboratory Tests 04/24/18 15:40 Urine Color Yellow Urine Appearance Clear Urine pH 6.0 Ur Specific [place] 1.031 Urine Protein 1+ H Urine Glucose (UA) Negative Urine Ketones Negative Urine Blood Negative Urine Nitrite Negative Urine Bilirubin Negative Urine Urobilinogen 4.0 e.u/dl Ur Leukocyte Esterase Negative Urine WBC (Auto) 2 Urine RBC (Auto) 7 Urine Mucus Rare NAD MEDICALLY STABLE PLAN:FOLLOW UP AT [facility] FOR CD AFTERCARE AND SUBOXONE TREATMENT CONTINUATION ON 05/23/18 @ 1:00 P.M.. FOLLOW UP AT [facility] FOR MEDICAL MANAGEMENT WITHIN 1 WEEK AFTER DISCHARGE.
== END 2018-05-17 09:55 | disposition home or self-care (01) | DRG 772 ==
LOC: YASAS 08:43 → Y5N 11:24
PROVIDERS: ADMIT Neuromusculoskeletal Medicine & OMM; ATTEND Neuromusculoskeletal Medicine & OMM
PROC: HZ42ZZZ Group Counseling for Substance Abuse Treatment, Cognitive-Behavioral (ICD-10-PCS; principal; 2018-04-19)
PROC: 8E0XXY8 Suture Removal from Upper Extremity (ICD-10-PCS; 2018-04-20)
DX: F19.20 Other psychoactive substance dependence, uncomplicated (principal); F11.20 Opioid dependence, uncomplicated; F10.20 Alcohol dependence, uncomplicated; F17.210 Nicotine dependence, cigarettes, uncomplicated; F43.10 Post-traumatic stress disorder, unspecified; F90.9 Attention-deficit hyperactivity disorder, unspecified type; G40.89 Other seizures; N50.812 Left testicular pain; N50.811 Right testicular pain; Z88.0 Allergy status to penicillin; Z48.02 Encounter for removal of sutures; Z59.0 Homelessness
CPT/HCPCS: 71046-TC-FY; 81003; 81015; 87086

== ENCOUNTER 2018-04-27 11:46 | Emergency (ER) | payer OTHER ==
[2018-04-27 11:51] VITALS: BP 92/58; PULSE 61; TEMP 98.1; BMI 24.3
--- NOTE | 2018-04-27 13:43 | PDOC ---
History of Present Illness - General Chief Complaint: Pain Stated Complaint: ABD PAIN Time Seen by Provider: 04/27/18 12:17 History Source: Patient Exam Limitations: No Limitations - History of Present Illness Travel History: No Initial Comments: 04/27/18 13:26 37-year-old male presents to ED with left testicular pain for the past few months without redness penile drainage rash or swelling. Patient denies history of hernia denies any heavy lifting. Patient is currently at [facility] for heroin abuse currently in the rehabilitation program. Patient denies fever, chills, urinary complaints, abdominal pain. Timing/Duration: reports: intermittent Quality: reports: mild, burning, sharpness Abdominal Pain Onset Location: reports: other Pain Radiation: reports: no radiation Activities at Onset: reports: none Aggravating Factors: improves with: None Alleviating Factors: improves with: None Past History - Past Medical History Allergies/Adverse Reactions: Allergies Allergy/AdvReac Type Severity Reaction Status Date / Time Penicillins Allergy Severe Hives Verified 04/27/18 12:19 Home Medications: Ambulatory Orders NK [No Known Home Medication] 04/18/18 Anemia: No Asthma: No Cancer: No Cardiac Disorders: No CVA: No COPD: No CHF: No Dementia: No Diabetes: No GI Disorders: No Disorders: No HTN: No Hypercholesterolemia: No Kidney Stones: No Liver Disease: No Seizures: Yes (r/t head trauma-last episode was in 08/2017) Thyroid Disease: No - Surgical History Abdominal Surgery: No Appendectomy: No Cardiac Surgery: No Cholecystectomy: No Lung Surgery: No Neurologic Surgery: No Orthopedic Surgery: Yes (fx, left arm (fall)) - Reproductive History Testicular Surgery: No - Suicide/Smoking/Psychosocial Hx Smoking History: Unknown if ever smoked Have you smoked in the past 12 months: Yes Number of Cigarettes Smoked Daily: 10 Cigars Per Day: 0 Information on smoking cessation initiated: No 'Breaking Loose' booklet given: 04/19/18 Hx Alcohol Use: Yes Drug/Substance Use Hx: Yes (heroin) Substance Use Type: Heroin Hx Substance Use Treatment: Yes (rehab [facility] 09/04 not completed) Patient Lives Alone: No Abd/GI Specific PMHX - Complaint Specific PMHX Hepatitis: No Pancreatitis: No Review of Systems - Review of Systems Able to Perform ROS?: No Is the patient limited Salvadorean proficient: No Constitutional: No: Symptoms Reported HEENTM: No: Symptoms Reported Respiratory: No: Symptoms reported Cardiac (ROS): No: Symptoms Reported ABD/GI: No: Symptoms Reported : Yes: Testicular Pain. No: Testicular Mass, Testicular Swelling Musculoskeletal: No: Symptoms Reported Integumentary: No: Symptoms Reported Neurological: No: Symptoms reported *Physical Exam - Vital Signs Last Vital Signs Temp Pulse Resp BP Pulse Ox 98.1 F 61 16 92/58 L 99 04/27/18 11:47 04/27/18 11:47 04/27/18 11:47 04/27/18 11:47 04/27/18 11:47 - Physical Exam General Appearance: Yes: Nourished, Appropriately Dressed. No: Apparent Distress HEENT: positive: EOMI, BEA, TMs Normal, Pharynx Normal. negative: Pale Conjunctivae Gastrointestinal/Abdominal: positive: Soft. negative: Tenderness Male Genitalia: positive: normal genitalia, other (normal cremasteric reflex). negative: testicular tenderness, testicular mass, epididymus tender Musculoskeletal: negative: CVA Tenderness Extremity: positive: Normal Capillary Refill. negative: Pedal Edema Integumentary: positive: Normal Color, Warm, Moist Neurologic: positive: Normal Mood/Affect, Motor Strength 5/5 (ambulatory) Moderate Sedation - Procedure Monitoring Vital Signs: Procedure Monitoring Vital Signs Temperature 98.1 F 04/27/18 11:47 Pulse Rate 61 04/27/18 11:47 Respiratory Rate 16 04/27/18 11:47 Blood Pressure 92/58 L 04/27/18 11:47 O2 Sat by Pulse Oximetry (%) 99 04/27/18 11:47 ED Treatment Course - RADIOLOGY Radiology Studies Ordered: Category Date Time Status SCROTUM AND CONTENTS US [US] Stat Ultrasound 04/27/18 12:19 Taken Medical Decision Making - Medical Decision Making 04/27/18 13:44 Chief complaint: Left testicular pain intimately for the past few months. Patient currently asymptomatic. Exam. No acute findings on exam. Patient ordered for ultrasound of the scrotum and contents 04/27/18 14:07 Both testicles appear unremarkable without evidence of torsion. Slightly prominent color Doppler flow in the left testicle relative to the right. Cannot rule out mild left epididymal orchitis. There is no evidence of hydrocele or varicocele bilaterally. Patient states no fever and had full STD workup. UA reviewed from the 6th collected at [facility] which was negative for acute findings. Urine culture was sent. *DC/Admit/Observation/Transfer Diagnosis at time of Disposition: Pain in left testicle - Discharge Dispostion Disposition: HOME Condition at time of disposition: Good - Referrals - Patient Instructions Printed Discharge Instructions: DI for Testicular Pain Additional Instructions: Please understands although your ultrasound was negative today the urine culture will be followed up . If symptoms worsen please return to the nearest ED for further evaluation. - Post Discharge Activity
== END 2018-04-27 14:38 | disposition home or self-care (01) ==
LOC: JER 11:46
DX: N50.812 Left testicular pain (principal); R56.1 Post traumatic seizures; F11.10 Opioid abuse, uncomplicated
CPT/HCPCS: 76870-TC; 99281-25